=== PATIENT | female | born 1935 | race Caucasian/White ===

== ENCOUNTER 2019-10-30 09:31 | Emergency (ER) | payer OTHER, MEDICARE ==
[2019-10-30 09:36] VITALS: TEMP 98; BMI 21.6
[2019-10-30] MEDS ORDERED: SODIUM CHLORIDE 0.9% 1000 ML INFUS.BAG IV ONE (09:50)
--- NOTE | 2019-10-30 10:10 | PDOC ---
History of Present Illness - General Chief Complaint: Injury Stated Complaint: R ankle injury Time Seen by Provider: 10/30/19 09:36 History Source: Patient Exam Limitations: No Limitations - History of Present Illness Initial Comments: 10/30/19 10:05 84-year-old female history of hypertension CAD prior angioplasty no stents, recently diagnosed with Lyme disease, on doxycycline for approximately 1 week here today with a near syncopal episode the night prior. Patient states she was down the cellar suddenly became very lightheaded felt she is about to faint so she grabbed onto something next to her did fall injuring her right ankle but denies complete LOC did not have any chest pain or palpitations but she was worried at that time that it may be related to her heart. Is now complaining of right ankle pain has not had any swelling has been ambulating with pain. Has been feeling lightheaded recently does feel that she has had lightheadedness in the past associated with Lyme disease. Denies any vertigo-like symptoms or unsteady gait no other current complaints. denies headache or focal weakness. has been eating or drinking normally. 10/30/19 10:10 Past History - Medical History Allergies/Adverse Reactions: Allergies Allergy/AdvReac Type Severity Reaction Status Date / Time No Known Allergies Allergy Verified 05/19/17 17:40 Home Medications: Ambulatory Orders B2/Vit A,C & E/Lut/Zeaxanth/Mn [Icaps Tablet] 1 each PO DAILY 08/24/12 Ca Cmb No.1/Vit D3/B-6/FA/B12 [Vitamin D3 1,000 Unit Tablet] 1 each PO DAILY 08/24/12 Calcium/Magnesium/Vit D3 [Calcium 500 mg Tablet] 1 each PO DAILY 08/24/12 Papaya [Papaya Enzyme] 1 each PO DAILY 08/24/12 Aspirin 81 mg PO DAILY 09/20/13 Multivitamin [Multi-Vitamin Daily] 1 each PO DAILY tablet 09/20/13 Atorvastatin Calcium 10 mg PO DAILY tablet 08/20/14 Metoprolol Succinate 25 mg PO DAILY 08/20/14 Lisinopril [Prinivil] 5 mg PO HS 10/30/19 Lisinopril [Prinivil] 20 mg PO HS 10/30/19 Anemia: No Asthma: No Cancer: No 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) CVA: No COPD: No CHF: No Dementia: No Diabetes: No GI Disorders: Yes (STOMACH PAIN) Disorders: Yes (TXED FOR RECENT UTI) HTN: Yes (BORDERLINE) Hypercholesterolemia: Yes Liver Disease: No Seizures: No Thyroid Disease: No - Surgical History Abdominal Surgery: No Appendectomy: Yes (1950) Cardiac Surgery: No Cholecystectomy: No Lung Surgery: No Neurologic Surgery: No Orthopedic Surgery: Yes (LEFT ROTATOR CUFF REPAIR 2008) - Reproductive History Is Patient Now?: No - Immunization History Immunization Up to Date: Yes - Psycho-Social/Smoking History Smoking History: Never smoked Have you smoked in the past 12 months: No Information on smoking cessation initiated: No - Substance Abuse Hx (Audit-C & DAST Scrn) How often the patient has a drink containing alcohol: Never Score: In Men: 4 or > Positive; In Women: 3 or > Positive: 0 Screen Result (Pos requires Nsg. Audit-10AR): Negative In the last yr the pt used illegal drug/Rx for NonMed reason: No Score: Yes response is considered Positive: 0 Screen Result (Positive result requires Nsg. DAST-10): Negative Review of Systems - Review of Systems Constitutional: No: Chills, Diaphoresis, Fever Respiratory: No: Cough, Orthopnea, Shortness of Breath, Stridor, Wheezing, Productive cough Cardiac (ROS): Yes: Lightheadedness. No: Chest Pain, Edema ABD/GI: No: Nausea, Vomiting : No: Burning, Dysuria, Discharge Musculoskeletal: Yes: Joint Pain Integumentary: No: Bruising, Change in Color Neurological: No: Headache, Numbness, Paresthesia All Other Systems: Reviewed and Negative *Physical Exam - Vital Signs Last Vital Signs Temp Pulse Resp BP Pulse Ox 98 F 89 17 184/85 H 98 10/30/19 09:32 10/30/19 09:32 10/30/19 09:32 10/30/19 09:32 10/30/19 09:32 - Physical Exam 10/30/19 10:10 Awake alert no acute distress lungs are clear bilaterally heart is regular 30 murmurs rubs or gallops abdomen is soft and nontender skin is warm and dry extremities are warm well perfused strength is 5 out of 5 all 4 extremities. Speech is clear [id number] is normal Heart Score/ECG Review #1 General ECG Interpretation: Sinus Rhythm, Normal Rate, Normal Intervals, No acute ischemic changes Compared to previous ECG there are: Other (left axis rate 66 bpm) ED Treatment Course - LABORATORY CBC & Chemistry Diagram: 10/30/19 10:00 10/30/19 10:00 - RADIOLOGY Radiology Studies Ordered: Category Date Time Status ANKLE-RIGHT [RAD] Stat Radiology 10/30/19 09:36 Ordered CXR [CHEST PA & LAT] [RAD] Stat Radiology 10/30/19 09:48 Ordered Medical Decision Making - Medical Decision Making 10/30/19 10:11 84-year-old female history of hypertension coronary disease and recent Lyme here with a near syncopal episode on the night prior and subsequent ankle injury plan x-ray of the right ankle to rule out fracture will also do a cardiac work- up and basic work-up to rule out causes of her lightheadedness and near syncopal episode. Including a CBC to rule out anemia CMP UA to rule out any associated infection such as UTI chest x-ray EKG troponin will hydrate with IV fluids 10/30/19 13:[address] head normal. ekg unremarkable. trop negative. ua negative for infection . pt unwilling to stay for continued tele monitoring. d/w dr brunson, can see pt in 48 hours. 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 was given 1 L NS fluids. initial bp high, now resolved 154/ 77. dc to home with son. Discharge - Discharge Information Problems reviewed: Yes Clinical Impression/Diagnosis: Ankle injury, Near syncope Condition: Stable Disposition: HOME - Follow up/Referral Referrals: Lawrence Larios MD [Staff Physician] - Bronwyn Arce MD [Primary Care Provider] - - Patient Discharge Instructions Patient Printed Discharge Instructions: DI for Syncope in Adults (Fainting), Ankle Sprain, How to Prevent Falls Additional Instructions: You should follow up with Dr Brunson this week. call to confirm time and date. 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 call to schedule. you can ice your ankle and elevate to reduce pain and swelling. fo ryour pain you can take tylenol 500 mg every 6 hours as needed for pain, or take ibuprofen 400 mg every 8 hours. return for any further feelings of lightheadedness, dizziness, chest pain or any concerns. your labs, ekg, chest xray and CT scan of your head are unremarkable. copies are attached. - Post Discharge Activity
[2019-10-30 10:29] LABS: ALBUMIN 3.5 g/dl (3.4-5.0); BILIRUBIN,TOTAL 0.8 mg/dl (0.2-1); CREATININE 0.9 mg/dl (0.55-1.3)
[2019-10-30 10:35] LABS: BASO % 0.6 % (0-2.0); HEMATOCRIT 38.1 % (32.4-45.2); HEMOGLOBIN 12.7 GM/dl (10.7-15.3); LYMPH % 12.5 % (8-40); MCH 31.7 pg (25.7-33.7); MCHC 33.4 g/dl (32.0-36.0); MEAN CELL VOLUME 94.9 fl (80-96); MEAN PLT VOLUME 8.4 fl (7.5-11.1); MONO % 7.6 % (3.8-10.2); NEUT % 78.3 % (42.8-82.8); PLATELET COUNT 244 K/MM3 (134-434); RBC 4.01 M/mm3 (3.60-5.2); RDW 12.8 % (11.6-15.6); WHITE BLOOD COUNT 8.3 K/mm3 (4.0-10.8)
[2019-10-30 11:48] VITALS: BP 154/77; PULSE 63
--- OUTSIDE RECORDS SUMMARY | 2019-10-30 11:51 | XMS ---
:1935 Author Organization [facility] Support Name Relationship Address Phone RE Unavailable Unavailable Unavailable HUMPHREY SON [address] [place] [address] [address] [place] [address] Re-disclosure Warning The records that you are about to access may contain information from federally- assisted alcohol or drug abuse programs. If such information is present, then the following federally mandated warning applies: This information has been disclosed to you from records protected by federal confidentiality rules (42 CFR part 2). The federal rules prohibit you from making any further disclosure of this information unless further disclosure is expressly permitted by the written consent of the person to whom it pertains or as otherwise permitted by 42 CFR part 2. A general authorization for the release of medical or other information is NOT sufficient for this purpose. The Federal rules restrict any use of the information to criminally investigate or prosecute any alcohol or drug abuse patient.The records that you are about to access may contain highly sensitive health information, the redisclosure of which is protected by Article 27-F of the [facility] Public Health law. If you continue you may haveaccess to information: Regarding HIV / AIDS; Provided by facilities licensed or operated by the [facility] Office of Mental Health; or Provided by the [facility] Office for People With Developmental Disabilities. If such information is present, then the following [facility] mandated warning applies: This information has been disclosed to you from confidential records which are protected by state law. State law prohibits you from making any further disclosure of this information without the specific written consent of the person to whom it pertains, or as otherwise permitted by law. Any unauthorized further disclosure in violation of state law may result in a fine or shelter sentence or both. A general authorization for the release of medical or other information is NOT sufficient authorization for further disclosure. Insurance Providers Payer name Policy type Policy ID Covered Covered constitution party's Policy P harry / Coverage constitution party ID relationship to Ruiz Inf ormation type ruiz [facility] [id number] [employer] [id number]
--- NOTE | 2019-10-31 09:54 | EKG ---
Test Reason : Blood Pressure : / mmHG Vent. Rate : 066 BPM Atrial Rate : 066 BPM P-R Int : 156 ms QRS Dur : 092 ms QT Int : 384 ms P-R-T Axes : 060 -44 061 degrees QTc Int : 402 ms NORMAL SINUS RHYTHM LEFT AXIS DEVIATION SEPTAL INFARCT (CITED ON OR BEFORE 24-AUG-2012) ABNORMAL ECG WHEN COMPARED WITH ECG OF 24-AUG-2012 07:55, QRS AXIS SHIFTED LEFT Confirmed by AARON RIVERS, ABIGAIL ([id number]) on 10/31/2019 9:53:41 AM Referred By: SHAHID VARGAS Confirmed By:ABIGAIL WALKER MD
== END 2019-10-30 12:35 | disposition home or self-care (01) ==
LOC: FER 09:31
DX: S99.911A Unspecified injury of right ankle, initial encounter (principal); R55 Syncope and collapse
CPT/HCPCS: 36415; 70450-TC; 71046-TC-FY; 73610-TC-RT-FY; 80053; 81003; 84484; 85025; 93005; 99285-25